=== PATIENT | male | born 1975 | race Caucasian/White ===

== ENCOUNTER 2020-09-05 12:37 | Emergency (ER) | payer OTHER ==
[2020-09-05] MEDS ORDERED: ACETAMINOPHEN 1000 MG/100 ML VIAL (NON FORMULARY) IVPB ONE (12:53)
[2020-09-05] MEDS ORDERED: LACTATED RINGERS SOLUTION 1000 ML INFUS.BAG IV ONE (12:54)
[2020-09-05] MEDS ORDERED: LORazepam 2 MG/ML SDV VIAL IVPUSH ONE (13:02)
[2020-09-05 13:11] VITALS: TEMP 98.6; BMI 29.2
[2020-09-05] MEDS ORDERED: LORazepam 2 MG/ML SDV VIAL ONE (13:11)
[2020-09-05] MEDS ORDERED: ACETAMINOPHEN INJECTION 100 ML IVPB ONE (13:11)
[2020-09-05 13:29] LABS: HEMATOCRIT 40.3 % (35.4-49); HEMOGLOBIN 13.4 GM/dl (11.7-16.9); MCHC 33.3 g/dl (32.0-35.9); MEAN CELL VOLUME 96.1 fl (80-96); MEAN PLT VOLUME 8.8 fl (7.5-11.1); PLATELET COUNT 94 K/MM3 (134-434); RBC 4.19 M/mm3 (4.00-5.60); RDW 13.2 % (11.9-15.9); WHITE BLOOD COUNT 10.9 K/mm3 (4.0-10.8)
[2020-09-05] MEDS ORDERED: DIPHTH,PERTUSS(ACELL),TET 0.5 ML DISP.SYRIN IM ONE ×2 (13:36→13:48)
[2020-09-05 13:39] LABS: INR 1.25 (0.82-1.09); PROTHROMBIN TIME (PATIENT) 13.8 SEC (10.2-13.0)
[2020-09-05 13:42] LABS: ALBUMIN 4.3 g/dl (3.4-5.0); ALK PHOS 142 U/L (45-117); ANION GAP 14 MMOL/L (8-16); BILIRUBIN,TOTAL 2.3 mg/dl (0.2-1); CALCIUM 8.9 mg/dl (8.5-10); CHLORIDE 97 mmol/L (98-107); CO2 21 mmol/L (21-32); CREATININE 0.7 mg/dl (0.55-1.3); GLUCOSE,RANDOM 125 mg/dl (74-106); POTASSIUM 3.3 mmol/L (3.5-5.1); SGOT/AST 135 U/L (15-37); SGPT/ALT 54 U/L (13-61); SODIUM 132 mmol/L (136-145); TOT PROT 8.3 g/dl (6.4-8.2)
[2020-09-05] MEDS ORDERED: POTASSIUM CHLORIDE ORAL LIQUID 20 MEQ/15 ML PO ONE (14:46)
[2020-09-05 15:29] LABS: PLATELET ESTIMATE MOD DECREASED
[2020-09-05] MEDS ORDERED: POTASSIUM CHLORIDE ORAL LIQUID 20 MEQ/15 ML ONE (16:07)
[2020-09-05 16:13] VITALS: BP 130/70; PULSE 90
== END 2020-09-05 19:30 | disposition home or self-care (01) ==
LOC: FER 12:37
PROC: 0JQ10ZZ Repair Face Subcutaneous Tissue and Fascia, Open Approach (ICD-10-PCS; principal; 2020-09-05)
PROC: 3E0333Z Introduction of Anti-inflammatory into Peripheral Vein, Percutaneous Approach (ICD-10-PCS; 2020-09-05)
PROC: 3E0234Z Introduction of Serum, Toxoid and Vaccine into Muscle, Percutaneous Approach (ICD-10-PCS; 2020-09-05)
PROC: 3E033NZ Introduction of Analgesics, Hypnotics, Sedatives into Peripheral Vein, Percutaneous Approach (ICD-10-PCS; 2020-09-05)
DX: S01.21XA Laceration without foreign body of nose, initial encounter (principal); S02.2XXB Fracture of nasal bones, initial encounter for open fracture; F10.230 Alcohol dependence with withdrawal, uncomplicated
CPT/HCPCS: 36415; 70140-TC-FY; 70450-TC; 70486-TC; 72125-TC; 80053; 80307; 85025; 85610; 90715; 93005; 99285-25; C9803; J0131; U0003

== ENCOUNTER 2020-09-10 14:52 | Emergency (ER) | payer OTHER ==
[2020-09-10 14:59] VITALS: BP 146/90; PULSE 93; TEMP 99.1; BMI 29.2
== END 2020-09-10 15:40 | disposition home or self-care (01) ==
LOC: FER 14:52
DX: Z48.00 Encounter for change or removal of nonsurgical wound dressing (principal)
CPT/HCPCS: 99281-25

== ENCOUNTER 2020-09-14 17:06 | Emergency (ER) | payer OTHER ==
[2020-09-14 17:14] VITALS: BP 145/88; PULSE 88; TEMP 98.8; BMI 30.1
== END 2020-09-14 17:58 | disposition home or self-care (01) ==
LOC: FER 17:06
DX: Z48.02 Encounter for removal of sutures (principal)
CPT/HCPCS: 99281-25